=== PATIENT | female | born 2000 | race Two or more races ===

== ENCOUNTER 2020-02-01 22:43 | Inpatient (IN) | payer OTHER ==
[~2020-02-01] VITALS: Ht 152.4 cm; Wt 45.5 kg
[2020-02-02] MEDS ORDERED: LORazepam 2 MG/ML VIAL IM ONE ×2 (01:15→23:00)
[2020-02-02] MEDS ORDERED: HALOPERIDOL LACTATE 5 MG/ML VIAL IM ONE ×2 (01:15→23:00)
[2020-02-02 02:55] LABS: BASOPHILS % (AUTO) 0.3 % (0.0-2.0); EOSINOPHILS % (AUTO) 0 % (1.0-6.0); HEMOGLOBIN 12.9 g/dL (12.0-16.0); LYMPHOCYTES # (AUTO) 2.8 K/uL (1.0-4.8); LYMPHOCYTES % (AUTO) 24.9 % (22.0-44.0); MEAN CORPUSCULAR HGB CONC 33.9 G/dL (31.0-37.0); MEAN CORPUSCULAR VOLUME 83 fL (80-100); MONOCYTES # (AUTO) 0.7 K/uL (0.1-1.0); MONOCYTES % (AUTO) 6.3 % (2.0-9.0); NEUTROPHILS # (AUTO) 7.7 K/uL (1.8-7.7); NEUTROPHILS % (AUTO) 68.5 % (40.0-70.0); PLATELET COUNT (AUTO) 192 K/uL (150-450); RED CELL DISTRIBUTION WIDTH 13.1 % (11.5-14.5)
[2020-02-02 03:01] LABS: ANION GAP 17 mmol/L (8-16); CALCIUM, TOTAL 9.1 mg/dL (8.8-10.5); CARBON DIOXIDE 22 mmol/L (22-29); CHLORIDE 101 mmol/L (98-107); GLOMERULAR FILTR. RATE CALC 58 mL/min (>60); GLUCOSE,RANDOM 86 mg/dL (70-110); POTASSIUM 3.6 mmol/L (3.5-5.1); SODIUM SERUM 140 mmol/L (136-145); UREA NITROGEN, BLOOD 12 mg/dL (7-18)
[2020-02-02 03:07] LABS: ALANINE AMINOTRANSFERASE 36 U/L (12-78); ALBUMIN 4.8 g/dL (3.4-5.0); ALKALINE PHOSPHATASE 57 U/L (46-116); ASPARTATE AMINOTRANSFERASE 28 U/L (15-37); BILIRUBIN,TOTAL 1.3 mg/dL (0.1-1.0); TOTAL PROTEIN, SERUM 7.5 g/dL (6.4-8.2)
[2020-02-02 03:21] LABS: COVID AG,FIA SOURCE NASOPHARYNGEAL
[2020-02-02] MEDS ORDERED: ZOLPIDEM TARTRATE 10 MG TABLET PO PRN (04:15)
[2020-02-02 14:01] VITALS: BP 121/71
[2020-02-02 16:05] VITALS: BP 118/61
[2020-02-02] MEDS ORDERED: DiphenhydrAMINE HCL 50 MG/ML VIAL IM ONE (23:00)
[2020-02-03] MEDS ORDERED: DOCUSATE SODIUM 100 MG CAPSULE PO PRN (08:00)
[2020-02-03] MEDS ORDERED: MAG HYDROX/AL HYDROX/SIMETH ES 30 ML SUSPENSION UDCUP PO PRN (08:00)
[2020-02-03] MEDS ORDERED: PETROLATUM,WHITE 28 GM JELLY TP PRN (08:00)
[2020-02-03] MEDS ORDERED: OMEPRAZOLE 20 MG CAPSULE PO PRN (08:00)
[2020-02-03] MEDS ORDERED: CloNIDine HCL 0.1 MG TABLET PO PRN (08:00)
[2020-02-03] MEDS ORDERED: ONDANSETRON HCL 4 MG TABLET PO PRN (08:00)
[2020-02-03] MEDS ORDERED: ACETAMINOPHEN 325 MG TABLET PO PRN (08:00)
[2020-02-03] MEDS ORDERED: MAGNESIUM HYDROXIDE SUSPENSION 30 ML UDCUP PO PRN (08:00)
[2020-02-03] MEDS ORDERED: BACITRACIN 28 GM OINTMENT TP PRN (08:00)
[2020-02-03] MEDS ORDERED: ALBUTEROL SULFATE HFA 90 MCG/PUFF 8 GM INHALER IH PRN (08:00)
[2020-02-03] MEDS ORDERED: IBUPROFEN 600 MG TABLET PO PRN (08:00)
[2020-02-03] MEDS ORDERED: BENZOCAINE/MENTHOL LOZENGE PO PRN (08:00)
[2020-02-03] MEDS ORDERED: LOPERAMIDE HCL 2 MG CAPSULE PO PRN (08:00)
[2020-02-03] MEDS ORDERED: DiphenhydrAMINE HCL 50 MG/ML VIAL IM ONE (08:30)
[2020-02-03] MEDS ORDERED: LORazepam 2 MG/ML VIAL IM ONE (08:30)
[2020-02-03] MEDS ORDERED: HALOPERIDOL LACTATE 5 MG/ML VIAL IM ONE (08:30)
[2020-02-03 17:33] VITALS: BP 120/70
[2020-02-03] MEDS: OLANZapine 7.5 MG TABLET PO SCH (21:00)
[2020-02-04] MEDS ORDERED: LORazepam 2 MG/ML VIAL ONE (03:48)
[2020-02-04] MEDS ORDERED: DiphenhydrAMINE HCL 50 MG/ML VIAL ONE (03:49)
[2020-02-04] MEDS ORDERED: HALOPERIDOL LACTATE 5 MG/ML VIAL ONE (03:49)
[2020-02-04] MEDS ORDERED: HALOPERIDOL LACTATE 5 MG/ML VIAL IM ONE ×3 (04:00→16:00)
[2020-02-04] MEDS ORDERED: LORazepam 2 MG/ML VIAL IM ONE ×3 (04:00→16:00)
[2020-02-04] MEDS ORDERED: DiphenhydrAMINE HCL 50 MG/ML VIAL IM ONE ×2 (04:00→08:30)
[2020-02-04 08:15] LABS: CHOL/HDL RATIO 3.4 (3.9-5.7)
[2020-02-04 16:11] VITALS: BP 97/69
[2020-02-04] MEDS: OLANZapine 7.5 MG TABLET PO SCH (19:32)
[2020-02-05] MEDS ORDERED: ChlorproMAZINE HCL 50 MG/2 ML AMP IM ONE (07:45)
[2020-02-05] MEDS ORDERED: DiphenhydrAMINE HCL 50 MG/ML VIAL IM ONE (07:45)
[2020-02-05] MEDS ORDERED: LORazepam 2 MG/ML VIAL IM ONE (07:45)
[2020-02-05] MEDS ORDERED: DiphenhydrAMINE HCL 50 MG/ML VIAL ONE (07:48)
[2020-02-05] MEDS ORDERED: LORazepam 2 MG/ML VIAL ONE (07:48)
[2020-02-05] MEDS ORDERED: ChlorproMAZINE HCL 50 MG/2 ML AMP ONE (07:48)
[2020-02-05 08:34] VITALS: BP 134/96
[2020-02-05 08:42] LABS: AMPHET/METH SCREEN,URINE NEGATIVE (NEGATIVE); BARBITURATE SCREEN, URINE NEGATIVE (NEGATIVE); BENZODIAZEPINES SCREEN,URINE NEGATIVE (NEGATIVE); CANNABINOID SCREEN,URINE POSITIVE (NEGATIVE); COCAINE SCREEN,URINE NEGATIVE (NEGATIVE); METHADONE SCREEN, URINE NEGATIVE (NEGATIVE); OPIATE SCREEN,URINE NEGATIVE (NEGATIVE)
[2020-02-05 08:56] LABS: APPEARANCE,URINE TURBID (CLEAR); GLUCOSE, URINE (UA) NEGATIVE (NEGATIVE); KETONES,URINE 15 mg/dL (NEGATIVE); LEUKOCYTE ESTERASE ,URINE NEGATIVE (NEGATIVE); NITRATE,URINE NEGATIVE (NEGATIVE); OCCULT BLOOD,URINE NEGATIVE (NEGATIVE); PROTEIN,URINE POS 1+ (NEGATIVE)
[2020-02-05 08:57] LABS: BILIRUBIN,URINE PRELIM. POSITIVE (NEGATIVE)
[2020-02-05 09:06] LABS: AMORPHOUS SEDIMENT,UR Many /LPF (None Seen); BACTERIA,URINE None Seen /HPF (None Seen); RBC,URINE None Seen /HPF (0-2); SQUAMOUS EPITHELIAL CELL,UR Rare /LPF (None Seen); WBC,URINE None Seen /HPF (0-5)
[2020-02-05 09:18] LABS: PHENCYCLIDINE SCREEN,URINE NEGATIVE (NEGATIVE)
[2020-02-05 11:40] VITALS: BP 104/71
[2020-02-05 16:24] VITALS: BP 106/72
[2020-02-05] MEDS: LORazepam 2 MG TABLET PO PRN ×2 (16:25→20:36)
[2020-02-05] MEDS: HALOPERIDOL 5 MG TABLET PO PRN ×2 (16:25→20:36)
[2020-02-05] MEDS: OLANZapine 7.5 MG TABLET PO SCH (20:24)
[2020-02-06 02:48] VITALS: BP 124/74
[2020-02-06] MEDS: LORazepam 2 MG TABLET PO PRN ×2 (06:45→16:57)
[2020-02-06] MEDS: LITHIUM CARBONATE 300 MG CAPSULE PO SCH ×2 (09:00→16:57)
[2020-02-06] MEDS ORDERED: HALOPERIDOL LACTATE 5 MG/ML VIAL ONE (13:50)
[2020-02-06] MEDS ORDERED: LORazepam 2 MG/ML VIAL ONE (13:50)
[2020-02-06] MEDS ORDERED: LORazepam 2 MG/ML VIAL IM ONE (14:15)
[2020-02-06] MEDS ORDERED: HALOPERIDOL LACTATE 5 MG/ML VIAL IM ONE (14:15)
[2020-02-06] MEDS: HALOPERIDOL 10 MG TABLET PO SCH (20:24)
[2020-02-06] MEDS ORDERED: OLANZapine 10 MG TABLET PO SCH (21:00)
[2020-02-07] MEDS ORDERED: HALOPERIDOL LACTATE 5 MG/ML VIAL IM ONE ×2 (05:30→13:30)
[2020-02-07] MEDS ORDERED: LORazepam 2 MG/ML VIAL IM ONE ×2 (05:30→13:30)
[2020-02-07] MEDS: LITHIUM CARBONATE 300 MG CAPSULE PO SCH ×2 (08:51→20:51)
[2020-02-07] MEDS: LORazepam 2 MG TABLET PO PRN (11:45)
[2020-02-07] MEDS: HALOPERIDOL 5 MG TABLET PO PRN (11:45)
[2020-02-07 14:45] VITALS: BP 113/75
[2020-02-07] MEDS: HALOPERIDOL 10 MG TABLET PO SCH (20:51)
[2020-02-07] MEDS ORDERED: OLANZapine 10 MG TABLET PO SCH (21:00)
[2020-02-08] MEDS: LITHIUM CARBONATE 300 MG CAPSULE PO SCH (09:22)
[2020-02-08] MEDS ORDERED: HALOPERIDOL LACTATE 5 MG/ML VIAL IM ONE (11:15)
[2020-02-08] MEDS ORDERED: DiphenhydrAMINE HCL 50 MG/ML VIAL IM ONE (11:15)
[2020-02-08] MEDS ORDERED: LORazepam 2 MG/ML VIAL IM ONE (11:15)
[2020-02-08] MEDS ORDERED: LITH300C3 PO (16:43)
[2020-02-08] MEDS ORDERED: HALO10 PO (16:43)
[2020-02-08] MEDS ORDERED: OLAN10TA3 PO (16:44)
== END 2020-02-08 17:00 | disposition short-term general hospital (02) | DRG 885 ==
LOC: EMS 22:43 → B3A 02-02 08:05
PROVIDERS: ADMIT Psychiatry & Neurology Psychiatry; ATTEND Psychiatry & Neurology Psychiatry
DX: F31.9 Bipolar disorder, unspecified (principal); Z20.828 Contact with and (suspected) exposure to other viral communicable diseases; K59.00 Constipation, unspecified; F41.9 Anxiety disorder, unspecified; G47.00 Insomnia, unspecified
CPT/HCPCS: 80307; 87426; G0480; J1200; J1630; J2060; J3230

== ENCOUNTER 2021-09-25 16:52 | Inpatient (IN) | payer MEDICAID, OTHER ==
[~2021-09-25] VITALS: Ht 160 cm; Wt 62.5 kg
[~2021-09-25 16:52] MED LIST: HALO10TA21 PO; LITH300C3 PO; OLAN10TA74 PO
[2021-09-25] MEDS ORDERED: TRAZ-257 PO (17:24)
[2021-09-25 17:44] LABS: BASOPHILS % (AUTO) 0.6 % (0.0-2.0); EOSINOPHILS % (AUTO) 0.2 % (1.0-6.0); HEMATOCRIT 40.3 % (36-46); HEMOGLOBIN 13.3 g/dL (12.0-16.0); LYMPHOCYTES # (AUTO) 2.5 K/uL (1.0-4.8); LYMPHOCYTES % (AUTO) 27.7 % (22.0-44.0); MEAN CORPUSCULAR HEMOGLOBIN 26.2 pg (26.0-34.0); MEAN CORPUSCULAR HGB CONC 32.9 G/dL (31.0-37.0); MEAN CORPUSCULAR VOLUME 79 fL (80-100); MONOCYTES # (AUTO) 0.6 K/uL (0.1-1.0); MONOCYTES % (AUTO) 6.5 % (2.0-9.0); NEUTROPHILS # (AUTO) 5.9 K/uL (1.8-7.7); PLATELET COUNT (AUTO) 279 K/uL (150-450); RED BLOOD CELL COUNT(AUTO) 5.08 MIL/uL (4.00-5.20); RED CELL DISTRIBUTION WIDTH 13.8 % (11.5-14.5)
[2021-09-25 17:53] LABS: CARBON DIOXIDE 26 mmol/L (22-29); CHLORIDE 103 mmol/L (98-107); POTASSIUM 4.1 mmol/L (3.5-5.1); SODIUM SERUM 139 mmol/L (136-145)
[2021-09-25 17:54] LABS: ANION GAP 10 mmol/L (8-16); CALCIUM, TOTAL 9.3 mg/dL (8.8-10.5); CREATININE 0.75 mg/dL (0.60-1.30); GLOMERULAR FILTR. RATE CALC > 60 mL/min (>60); GLUCOSE,RANDOM 101 mg/dL (70-110); UREA NITROGEN, BLOOD 11 mg/dL (7-18)
[2021-09-25] MEDS ORDERED: LORazepam 2 MG/ML VIAL ONE (17:56)
[2021-09-25] MEDS ORDERED: HALOPERIDOL LACTATE 5 MG/ML VIAL ONE (17:56)
[2021-09-25] MEDS ORDERED: DiphenhydrAMINE HCL 50 MG/ML VIAL ONE (17:56)
[2021-09-25 17:59] LABS: ALANINE AMINOTRANSFERASE 16 U/L (12-78); ALBUMIN 4.3 g/dL (3.4-5.0); ALKALINE PHOSPHATASE 67 U/L (46-116); ASPARTATE AMINOTRANSFERASE 12 U/L (15-37); BILIRUBIN,TOTAL 0.6 mg/dL (0.1-1.0); TOTAL PROTEIN, SERUM 8.6 g/dL (6.4-8.2)
[2021-09-25] MEDS ORDERED: DiphenhydrAMINE HCL 50 MG/ML VIAL IM ONE (18:00)
[2021-09-25] MEDS ORDERED: LORazepam 2 MG/ML VIAL IM ONE (18:00)
[2021-09-25] MEDS ORDERED: HALOPERIDOL LACTATE 5 MG/ML VIAL IM ONE (18:00)
[2021-09-25 18:25] LABS: COVID AG,FIA SOURCE NASOPHARYNGEAL
[2021-09-25 18:40] LABS: SALICYLATE < 2.8 mg/dL (2.8-20.0)
[2021-09-25 18:44] LABS: ACETAMINOPHEN < 2 mcg/mL (10-30)
[2021-09-25 18:47] LABS: LITHIUM < 0.20 mmol/L (0.60-1.20)
[2021-09-25 18:50] LABS: AMPHET/METH SCREEN,URINE NEGATIVE (NEGATIVE); BARBITURATE SCREEN, URINE NEGATIVE (NEGATIVE); BENZODIAZEPINES SCREEN,URINE NEGATIVE (NEGATIVE); CANNABINOID SCREEN,URINE POSITIVE (NEGATIVE); COCAINE SCREEN,URINE NEGATIVE (NEGATIVE); METHADONE SCREEN, URINE NEGATIVE (NEGATIVE); OPIATE SCREEN,URINE NEGATIVE (NEGATIVE)
[2021-09-25 18:52] LABS: PHENCYCLIDINE SCREEN,URINE NEGATIVE (NEGATIVE)
[2021-09-26 02:42] VITALS: BP 119/82
[2021-09-26 08:14] VITALS: BP 115/77
[2021-09-26] MEDS: LORazepam 2 MG TABLET PO PRN ×3 (08:33→20:35)
[2021-09-26] MEDS: HALOPERIDOL 5 MG TABLET PO PRN ×3 (08:33→20:35)
[2021-09-26] MEDS ORDERED: BENZOCAINE/MENTHOL LOZENGE PO PRN (10:45)
[2021-09-26] MEDS ORDERED: CloNIDine HCL 0.1 MG TABLET PO PRN (10:45)
[2021-09-26] MEDS ORDERED: DOCUSATE SODIUM 100 MG CAPSULE PO PRN (10:45)
[2021-09-26] MEDS ORDERED: ALBUTEROL SULFATE HFA 90 MCG/PUFF 8 GM INHALER IH PRN (10:45)
[2021-09-26] MEDS ORDERED: ONDANSETRON HCL 4 MG TABLET PO PRN (10:45)
[2021-09-26] MEDS ORDERED: BACITRACIN 28 GM OINTMENT TP PRN (10:45)
[2021-09-26] MEDS ORDERED: MAGNESIUM HYDROXIDE SUSPENSION 30 ML UDCUP PO PRN (10:45)
[2021-09-26] MEDS ORDERED: IBUPROFEN 600 MG TABLET PO PRN (10:45)
[2021-09-26] MEDS ORDERED: LOPERAMIDE HCL 2 MG CAPSULE PO PRN (10:45)
[2021-09-26] MEDS ORDERED: OMEPRAZOLE 20 MG CAPSULE PO PRN (10:45)
[2021-09-26] MEDS ORDERED: ACETAMINOPHEN 325 MG TABLET PO PRN (10:45)
[2021-09-26] MEDS ORDERED: PETROLATUM,WHITE 28 GM JELLY TP PRN (10:45)
[2021-09-26] MEDS ORDERED: MAG HYDROX/AL HYDROX/SIMETH ES 30 ML SUSPENSION UDCUP PO PRN (10:45)
[2021-09-26 16:15] VITALS: BP 117/79
[2021-09-26] MEDS: LITHIUM CARBONATE 300 MG CAPSULE PO SCH (17:19)
[2021-09-26] MEDS: OLANZapine 7.5 MG TABLET PO SCH (20:18)
[2021-09-26] MEDS: DIVALPROEX SODIUM 500 MG DR TABLET PO SCH (20:18)
[2021-09-26 20:30] VITALS: BP 110/71
[2021-09-27] MEDS: LORazepam 2 MG TABLET PO PRN ×3 (04:44→17:15)
[2021-09-27] MEDS: HALOPERIDOL 5 MG TABLET PO PRN ×3 (04:44→17:15)
[2021-09-27] MEDS: DIVALPROEX SODIUM 500 MG DR TABLET PO SCH ×2 (07:37→20:24)
[2021-09-27] MEDS: LITHIUM CARBONATE 300 MG CAPSULE PO SCH ×2 (07:37→16:28)
[2021-09-27 08:09] VITALS: BP 112/46
[2021-09-27 17:35] VITALS: BP 106/57
[2021-09-27] MEDS: OLANZapine 7.5 MG TABLET PO SCH (20:24)
[2021-09-28] MEDS: LORazepam 2 MG TABLET PO PRN (05:57)
[2021-09-28] MEDS: HALOPERIDOL 5 MG TABLET PO PRN ×2 (05:57→15:40)
[2021-09-28] MEDS: DIVALPROEX SODIUM 500 MG DR TABLET PO SCH ×2 (07:35→20:22)
[2021-09-28] MEDS: LITHIUM CARBONATE 300 MG CAPSULE PO SCH ×2 (07:35→16:42)
[2021-09-28 09:30] VITALS: BP 142/91
[2021-09-28] MEDS ORDERED: DiphenhydrAMINE HCL 50 MG/ML VIAL IM ONE ×2 (10:15→10:45)
[2021-09-28] MEDS ORDERED: LORazepam 2 MG/ML VIAL IM ONE ×2 (10:15→10:45)
[2021-09-28] MEDS ORDERED: HALOPERIDOL LACTATE 5 MG/ML VIAL IM ONE ×2 (10:15→10:45)
[2021-09-28 16:01] VITALS: BP 110/66
[2021-09-28] MEDS ORDERED: OLANZapine 10 MG TABLET PO SCH (21:00)
[2021-09-29] MEDS: LORazepam 2 MG TABLET PO PRN (02:34)
[2021-09-29] MEDS: ZOLPIDEM TARTRATE 10 MG TABLET PO PRN (02:34)
[2021-09-29] MEDS ORDERED: DiphenhydrAMINE HCL 50 MG/ML VIAL IM ONE (08:15)
[2021-09-29] MEDS ORDERED: ChlorproMAZINE HCL 50 MG/2 ML AMP IM ONE (08:15)
[2021-09-29] MEDS ORDERED: LORazepam 2 MG/ML VIAL IM ONE (08:15)
[2021-09-29] MEDS: LITHIUM CARBONATE 300 MG CAPSULE PO SCH ×2 (08:27→16:35)
[2021-09-29] MEDS: DIVALPROEX SODIUM 500 MG DR TABLET PO SCH ×2 (08:27→20:20)
[2021-09-29] MEDS: OLANZapine 10 MG TABLET PO SCH (20:36)
[2021-09-30] MEDS: LITHIUM CARBONATE 300 MG CAPSULE PO SCH ×2 (07:38→16:28)
[2021-09-30] MEDS: DIVALPROEX SODIUM 500 MG DR TABLET PO SCH ×2 (07:38→20:07)
[2021-09-30] MEDS: LORazepam 2 MG TABLET PO PRN ×3 (07:38→18:45)
[2021-09-30] MEDS: HALOPERIDOL 5 MG TABLET PO PRN ×2 (14:12→18:45)
[2021-09-30] MEDS: OLANZapine 10 MG TABLET PO SCH (20:07)
[2021-10-01] MEDS: DIVALPROEX SODIUM 500 MG DR TABLET PO SCH ×2 (07:52→20:24)
[2021-10-01] MEDS: HALOPERIDOL 5 MG TABLET PO PRN ×2 (07:52→16:36)
[2021-10-01] MEDS: LITHIUM CARBONATE 300 MG CAPSULE PO SCH ×2 (07:52→16:36)
[2021-10-01] MEDS: LORazepam 2 MG TABLET PO PRN ×2 (07:52→16:36)
[2021-10-01 08:28] VITALS: BP 141/87
[2021-10-01] MEDS: OLANZapine 10 MG TABLET PO SCH (20:24)
[2021-10-02 08:12] VITALS: BP 121/85
[2021-10-02] MEDS: DIVALPROEX SODIUM 500 MG DR TABLET PO SCH ×2 (08:20→20:23)
[2021-10-02] MEDS: LITHIUM CARBONATE 300 MG CAPSULE PO SCH ×2 (08:20→16:00)
[2021-10-02] MEDS: HALOPERIDOL 5 MG TABLET PO PRN (15:05)
[2021-10-02] MEDS: LORazepam 2 MG TABLET PO PRN (15:05)
[2021-10-02] MEDS ORDERED: HALOPERIDOL LACTATE 5 MG/ML VIAL IM ONE (16:15)
[2021-10-02] MEDS ORDERED: DiphenhydrAMINE HCL 50 MG/ML VIAL IM ONE (16:15)
[2021-10-02] MEDS ORDERED: LORazepam 2 MG/ML VIAL IM ONE (16:15)
[2021-10-02] MEDS: OLANZapine 10 MG TABLET PO SCH (20:23)
[2021-10-03] MEDS: LITHIUM CARBONATE 300 MG CAPSULE PO SCH ×2 (08:26→16:46)
[2021-10-03] MEDS: DIVALPROEX SODIUM 500 MG DR TABLET PO SCH ×2 (08:26→20:54)
[2021-10-03] MEDS: LORazepam 2 MG TABLET PO PRN (15:45)
[2021-10-03 16:30] VITALS: BP 120/79
[2021-10-03] MEDS: HALOPERIDOL 5 MG TABLET PO PRN (16:46)
[2021-10-03] MEDS: OLANZapine 10 MG TABLET PO SCH (20:54)
[2021-10-04 08:13] VITALS: BP 125/83
[2021-10-04] MEDS: DIVALPROEX SODIUM 500 MG DR TABLET PO SCH ×2 (08:28→20:00)
[2021-10-04] MEDS: LITHIUM CARBONATE 300 MG CAPSULE PO SCH ×2 (08:28→16:29)
[2021-10-04] MEDS: HALOPERIDOL 5 MG TABLET PO PRN (15:45)
[2021-10-04 16:42] VITALS: BP 136/91
[2021-10-04] MEDS: OLANZapine 10 MG TABLET PO SCH (20:00)
[2021-10-04] MEDS: ZOLPIDEM TARTRATE 10 MG TABLET PO PRN (20:28)
[2021-10-05 05:47] LABS: COVID AG,FIA SOURCE NASAL SWAB
[2021-10-05] MEDS: LITHIUM CARBONATE 300 MG CAPSULE PO SCH ×2 (09:07→16:45)
[2021-10-05] MEDS: DIVALPROEX SODIUM 500 MG DR TABLET PO SCH ×2 (09:07→20:30)
[2021-10-05] MEDS ORDERED: LORazepam 2 MG/ML VIAL ONE (16:19)
[2021-10-05] MEDS ORDERED: HALOPERIDOL LACTATE 5 MG/ML VIAL ONE (16:19)
[2021-10-05] MEDS ORDERED: DiphenhydrAMINE HCL 50 MG/ML VIAL ONE (16:19)
[2021-10-05] MEDS ORDERED: LORazepam 2 MG/ML VIAL IM ONE (16:30)
[2021-10-05] MEDS ORDERED: DiphenhydrAMINE HCL 50 MG/ML VIAL IM ONE (16:30)
[2021-10-05] MEDS ORDERED: HALOPERIDOL LACTATE 5 MG/ML VIAL IM ONE (16:30)
[2021-10-05 17:31] VITALS: BP 132/85
[2021-10-05] MEDS: OLANZapine 10 MG TABLET PO SCH (20:30)
[2021-10-05] MEDS: ZOLPIDEM TARTRATE 10 MG TABLET PO PRN (20:48)
[2021-10-06 08:12] VITALS: BP 120/80
[2021-10-06] MEDS: DIVALPROEX SODIUM 500 MG DR TABLET PO SCH ×3 (09:00→16:32)
[2021-10-06] MEDS: LITHIUM CARBONATE 300 MG CAPSULE PO SCH ×2 (09:00→16:32)
[2021-10-06 16:23] VITALS: BP 113/72
[2021-10-06] MEDS: HALOPERIDOL 5 MG TABLET PO PRN (16:33)
[2021-10-06] MEDS ORDERED: LORazepam 2 MG TABLET PO PRN (17:30)
[2021-10-06] MEDS ORDERED: ZOLPIDEM TARTRATE 10 MG TABLET PO PRN (17:30)
[2021-10-06] MEDS: OLANZapine 10 MG TABLET PO SCH (20:05)
[2021-10-07] MEDS: LITHIUM CARBONATE 300 MG CAPSULE PO SCH (08:13)
[2021-10-07] MEDS: DIVALPROEX SODIUM 500 MG DR TABLET PO SCH ×2 (08:13→13:18)
[2021-10-07 08:32] VITALS: BP 115/71
[2021-10-07] MEDS ORDERED: DIVA-112 PO (20:47)
[2021-10-08] MEDS ORDERED: DIVA-112 PO (00:29)
[2021-10-08] MEDS ORDERED: LITH300C3 PO (00:29)
== END 2021-10-07 14:15 | disposition home or self-care (01) | DRG 750 ==
LOC: EMS 16:52 → 3EC 09-26 01:29
PROVIDERS: ADMIT Psychiatry & Neurology Psychiatry; ATTEND Psychiatry & Neurology Psychiatry
DX: F25.9 Schizoaffective disorder, unspecified (principal); Z91.14 Patient's other noncompliance with medication regimen; R45.851 Suicidal ideations; F10.11 Alcohol abuse, in remission; F12.10 Cannabis abuse, uncomplicated; F31.9 Bipolar disorder, unspecified; T43.212A Poisoning by selective serotonin and norepinephrine reuptake inhibitors, intentional self-harm, initial encounter; Y90.9 Presence of alcohol in blood, level not specified; Z20.822 Contact with and (suspected) exposure to COVID-19; G47.00 Insomnia, unspecified; K59.00 Constipation, unspecified; F41.9 Anxiety disorder, unspecified; Z71.51 Drug abuse counseling and surveillance of drug abuser; Z87.891 Personal history of nicotine dependence; Y92.89 Other specified places as the place of occurrence of the external cause
CPT/HCPCS: 80053; 80164; 80178; 85025; 96365; 99291; G0480; G0481; J1200; J1630; J2060; J3230

== ENCOUNTER 2023-04-08 07:15 | Inpatient (IN) | payer MEDICAID ==
[~2023-04-08] VITALS: Ht 149.9 cm; Wt 72.1 kg
[~2023-04-08 07:15] MED LIST changes: +DIVA-112 PO; +TRAZ-257 PO
[2023-04-09] MEDS ORDERED: HALOPERIDOL 5 MG TABLET PO PRN (13:00)
[2023-04-09] MEDS ORDERED: ZOLPIDEM TARTRATE 10 MG TABLET PO PRN (13:00)
[2023-04-09] MEDS ORDERED: INFLUENZA VIRUS VACCINE QVS 2023-24 (6MO+)/PF 60 MCG/0.5 ML SYRINGE IM. ONE (14:45)
[2023-04-09 15:40] VITALS: BP 136/74; PULSE 97; RESP 19; TEMP 97.9; O2SAT 99
[2023-04-09] MEDS ORDERED: HALOPERIDOL LACTATE 5 MG/ML VIAL IM PRN (17:30)
[2023-04-09] MEDS ORDERED: MAG HYDROX/ALUMINUM HYD/SIMETH ES 30 ML SUSPENSION UDCUP PO PRN (17:30)
[2023-04-09] MEDS ORDERED: GuaiFENesin/D-METHORPHAN [SUGAR-FREE] 200-20MG/10 ML SYRUP UDCUP PO PRN (17:30)
[2023-04-09] MEDS ORDERED: HydrOXYzine PAMOATE 50 MG CAPSULE PO PRN (17:30)
[2023-04-09] MEDS ORDERED: PROMETHAZINE HCL 25 MG TABLET PO PRN (17:30)
[2023-04-09] MEDS ORDERED: LOPERAMIDE HCL 2 MG CAPSULE PO PRN (17:30)
[2023-04-09] MEDS ORDERED: MAGNESIUM HYDROXIDE SUSPENSION 30 ML UDCUP PO PRN (17:30)
[2023-04-09] MEDS ORDERED: TUBERCULIN, PURIFIED PROTEIN DERIVATIVE 5 TU/0.1 ML SYRINGE ID ONE (17:30)
[2023-04-09] MEDS ORDERED: ACETAMINOPHEN 325 MG TABLET PO PRN (17:30)
[2023-04-09] MEDS ORDERED: DiphenhydrAMINE HCL 50 MG/ML VIAL ONE (17:52)
[2023-04-09] MEDS ORDERED: HALOPERIDOL LACTATE 5 MG/ML VIAL IM ONE (18:00)
[2023-04-09] MEDS ORDERED: LORazepam 2 MG/ML VIAL IM ONE (18:00)
[2023-04-09] MEDS ORDERED: DiphenhydrAMINE HCL 50 MG/ML VIAL IM ONE (18:00)
[2023-04-09] MEDS: MELATONIN 5 MG TABLET PO SCH (20:25)
[2023-04-09] MEDS: OLANZapine 5 MG RAPDIS TABLET PO SCH (20:25)
[2023-04-09] MEDS ORDERED: OXcarbazepine 300 MG TABLET PO SCH (21:00)
[2023-04-09] MEDS ORDERED: OLANZapine 5 MG RAPDIS TABLET PO SCH (21:00)
[2023-04-10] MEDS: MULTIVITAMINS WITH MINERALS, THERAPEUTIC TABLET PO SCH (08:18)
[2023-04-10] MEDS: FOLIC ACID 1 MG TABLET PO SCH (08:18)
[2023-04-10] MEDS: DIVALPROEX SODIUM 500 MG ER TABLET PO SCH ×3 (08:18→16:13)
[2023-04-10] MEDS: NALTREXONE HCL 50 MG TABLET PO SCH (08:18)
[2023-04-10] MEDS: OMEGA-3/DHA/EPA/FISH OIL 1,000 MG CAPSULE PO SCH (08:18)
[2023-04-10] MEDS: THIAMINE 100 MG TABLET PO SCH ×2 (08:19→16:13)
[2023-04-10] MEDS: LORazepam 2 MG TABLET PO PRN ×2 (08:19→14:29)
[2023-04-10 08:35] VITALS: BP 132/73; PULSE 100; RESP 16; TEMP 97.8; O2SAT 97
[2023-04-10] MEDS: OLANZapine 5 MG RAPDIS TABLET PO SCH ×4 (08:42→20:44)
[2023-04-10] MEDS: OLANZapine 5 MG RAPDIS TABLET PO PRN (14:29)
[2023-04-10] MEDS: MELATONIN 5 MG TABLET PO SCH (20:44)
[2023-04-10 20:56] VITALS: BP 112/68; PULSE 85; RESP 18; TEMP 97.3
[2023-04-11] MEDS: OLANZapine 5 MG RAPDIS TABLET PO PRN ×2 (03:38→10:24)
[2023-04-11] MEDS: THIAMINE 100 MG TABLET PO SCH ×2 (08:12→16:29)
[2023-04-11] MEDS: MULTIVITAMINS WITH MINERALS, THERAPEUTIC TABLET PO SCH (08:13)
[2023-04-11] MEDS: FOLIC ACID 1 MG TABLET PO SCH (08:13)
[2023-04-11] MEDS: OLANZapine 5 MG RAPDIS TABLET PO SCH ×4 (08:13→20:55)
[2023-04-11] MEDS: LORazepam 2 MG TABLET PO PRN (08:13)
[2023-04-11] MEDS: OMEGA-3/DHA/EPA/FISH OIL 1,000 MG CAPSULE PO SCH (08:13)
[2023-04-11] MEDS: NALTREXONE HCL 50 MG TABLET PO SCH (08:13)
[2023-04-11] MEDS: DIVALPROEX SODIUM 500 MG ER TABLET PO SCH ×3 (08:13→16:29)
[2023-04-11 08:17] LABS: BASOPHILS % (AUTO) 0.5 % (0.0-2.0); EOSINOPHILS % (AUTO) 2.2 % (1.0-6.0); HEMATOCRIT 36.8 % (36-46); HEMOGLOBIN 12.3 g/dL (12.0-16.0); LYMPHOCYTES # (AUTO) 3.1 K/uL (1.0-4.8); LYMPHOCYTES % (AUTO) 42.5 % (22.0-44.0); MEAN CORPUSCULAR HEMOGLOBIN 28.5 pg (26.0-34.0); MEAN CORPUSCULAR HGB CONC 33.5 G/dL (31.0-37.0); MEAN CORPUSCULAR VOLUME 85 fL (80-100); MONOCYTES # (AUTO) 0.5 K/uL (0.1-1.0); MONOCYTES % (AUTO) 6.9 % (2.0-9.0); NEUTROPHILS # (AUTO) 3.5 K/uL (1.8-7.7); NEUTROPHILS % (AUTO) 47.9 % (40.0-70.0); PLATELET COUNT (AUTO) 184 K/uL (150-450); RED BLOOD CELL COUNT(AUTO) 4.32 MIL/uL (4.00-5.20); RED CELL DISTRIBUTION WIDTH 13.7 % (11.5-14.5); WHITE BLOOD COUNT (AUTO) 7.2 K/uL (4.5-11.0)
[2023-04-11 08:32] VITALS: BP 109/65; PULSE 92; RESP 17; TEMP 97.6; O2SAT 97
[2023-04-11 08:46] LABS: ALANINE AMINOTRANSFERASE 138 U/L (12-78); ALBUMIN 3.1 g/dL (3.4-5.0); ALKALINE PHOSPHATASE 62 U/L (46-116); ANION GAP 7 mmol/L (8-16); ASPARTATE AMINOTRANSFERASE 83 U/L (15-37); BILIRUBIN,TOTAL 0.2 mg/dL (0.1-1.0); CALCIUM, TOTAL 8.3 mg/dL (8.8-10.5); CARBON DIOXIDE 26 mmol/L (22-29); CHLORIDE 105 mmol/L (98-107); CREATININE 0.69 mg/dL (0.60-1.30); FREE T4 (FREE THYROXINE) 1.15 ng/dL (0.76-1.46); GLOMERULAR FILTR. RATE CALC > 60 mL/min (>60); GLUCOSE,RANDOM 117 mg/dL (70-110); SODIUM SERUM 138 mmol/L (136-145); THYROID STIMULATING HORMONE 0.34 uIU/mL (0.36-3.74); TOTAL PROTEIN, SERUM 6.7 g/dL (6.4-8.2); UREA NITROGEN, BLOOD 10 mg/dL (7-18)
[2023-04-11 09:09] VITALS: BP 109/65; PULSE 92; RESP 17; TEMP 97.6; O2SAT 97
[2023-04-11] MEDS: MELATONIN 5 MG TABLET PO SCH (20:54)
[2023-04-11 23:24] VITALS: BP 118/72; PULSE 85; RESP 18; TEMP 98; O2SAT 98
[2023-04-12] MEDS: MULTIVITAMINS WITH MINERALS, THERAPEUTIC TABLET PO SCH (08:03)
[2023-04-12] MEDS: FOLIC ACID 1 MG TABLET PO SCH (08:03)
[2023-04-12] MEDS: DIVALPROEX SODIUM 500 MG ER TABLET PO SCH ×3 (08:03→16:18)
[2023-04-12] MEDS: NALTREXONE HCL 50 MG TABLET PO SCH (08:03)
[2023-04-12] MEDS: THIAMINE 100 MG TABLET PO SCH ×2 (08:03→17:24)
[2023-04-12] MEDS: LORazepam 2 MG TABLET PO PRN ×2 (08:03→16:18)
[2023-04-12] MEDS: OMEGA-3/DHA/EPA/FISH OIL 1,000 MG CAPSULE PO SCH (08:04)
[2023-04-12] MEDS: OLANZapine 5 MG RAPDIS TABLET PO SCH ×4 (08:04→20:11)
[2023-04-12 08:43] VITALS: BP 111/73; PULSE 100; RESP 17; TEMP 97.6; O2SAT 96
[2023-04-12] MEDS ORDERED: LORazepam 2 MG/ML VIAL ONE (08:46)
[2023-04-12] MEDS ORDERED: DiphenhydrAMINE HCL 50 MG/ML VIAL ONE (08:46)
[2023-04-12] MEDS ORDERED: DiphenhydrAMINE HCL 50 MG/ML VIAL IM ONE (09:00)
[2023-04-12] MEDS ORDERED: LORazepam 2 MG/ML VIAL IM ONE (09:00)
[2023-04-12] MEDS ORDERED: HALOPERIDOL LACTATE 5 MG/ML VIAL IM ONE (09:00)
[2023-04-12 09:01] VITALS: BP 111/73; PULSE 106; RESP 17; TEMP 97.6; O2SAT 96
[2023-04-12 18:45] VITALS: BP 122/70; PULSE 98; RESP 20; TEMP 97.3; O2SAT 100
[2023-04-12] MEDS: MELATONIN 5 MG TABLET PO SCH (20:11)
[2023-04-12 23:58] VITALS: BP 124/74; PULSE 96; RESP 18; TEMP 97.5; O2SAT 97
[2023-04-13 02:21] VITALS: BP 122/72; PULSE 86; RESP 17; TEMP 97.5; O2SAT 97
[2023-04-13] MEDS: NALTREXONE HCL 50 MG TABLET PO SCH (08:32)
[2023-04-13] MEDS: MULTIVITAMINS WITH MINERALS, THERAPEUTIC TABLET PO SCH (08:32)
[2023-04-13] MEDS: FOLIC ACID 1 MG TABLET PO SCH (08:32)
[2023-04-13] MEDS: DIVALPROEX SODIUM 500 MG ER TABLET PO SCH ×3 (08:32→17:23)
[2023-04-13] MEDS: THIAMINE 100 MG TABLET PO SCH ×2 (08:32→17:23)
[2023-04-13] MEDS: OLANZapine 5 MG RAPDIS TABLET PO SCH ×4 (08:33→21:01)
[2023-04-13] MEDS: OMEGA-3/DHA/EPA/FISH OIL 1,000 MG CAPSULE PO SCH (08:33)
[2023-04-13 08:44] LABS: CHOL/HDL RATIO 2.7 (3.9-5.7)
[2023-04-13 08:58] VITALS: BP 113/69; PULSE 76; RESP 16; TEMP 98.3; O2SAT 96
[2023-04-13 09:00] VITALS: BP 105/67; PULSE 100; RESP 18; TEMP 98; O2SAT 98
[2023-04-13 20:20] VITALS: BP 126/73; PULSE 96; RESP 18; TEMP 97.5
[2023-04-13 20:37] VITALS: BP 126/73; PULSE 96; RESP 18; TEMP 97.5
[2023-04-13] MEDS: MELATONIN 5 MG TABLET PO SCH (21:01)
[2023-04-14] MEDS: OLANZapine 5 MG RAPDIS TABLET PO PRN (03:52)
[2023-04-14] MEDS: THIAMINE 100 MG TABLET PO SCH ×2 (08:11→16:09)
[2023-04-14] MEDS: NALTREXONE HCL 50 MG TABLET PO SCH (08:11)
[2023-04-14] MEDS: DIVALPROEX SODIUM 500 MG ER TABLET PO SCH ×3 (08:11→16:09)
[2023-04-14] MEDS: LORazepam 2 MG TABLET PO PRN ×2 (08:11→16:09)
[2023-04-14] MEDS: OLANZapine 5 MG RAPDIS TABLET PO SCH ×4 (08:11→20:10)
[2023-04-14] MEDS: OMEGA-3/DHA/EPA/FISH OIL 1,000 MG CAPSULE PO SCH (08:11)
[2023-04-14] MEDS: FOLIC ACID 1 MG TABLET PO SCH (08:11)
[2023-04-14] MEDS: MULTIVITAMINS WITH MINERALS, THERAPEUTIC TABLET PO SCH (08:11)
[2023-04-14 09:07] LABS: HEPATITIS C AB (EIA) Non Reactive (Non Reactive)
[2023-04-14 09:41] VITALS: BP 120/66; PULSE 98; RESP 18; TEMP 98.3
[2023-04-14] MEDS: MELATONIN 5 MG TABLET PO SCH (20:10)
[2023-04-14] MEDS ORDERED: DIVA500T69 PO (20:31)
[2023-04-14] MEDS ORDERED: MELA5TAB40 PO (20:31)
[2023-04-14] MEDS ORDERED: OLAN5TAB94 PO (20:31)
[2023-04-14] MEDS ORDERED: NALT50TA PO (20:31)
[2023-04-14] MEDS ORDERED: OMEG-135 PO (20:31)
[2023-04-15 01:21] VITALS: BP 111/77; PULSE 97; RESP 16; TEMP 96.3; O2SAT 98
[2023-04-15] MEDS: MULTIVITAMINS WITH MINERALS, THERAPEUTIC TABLET PO SCH (08:06)
[2023-04-15] MEDS: THIAMINE 100 MG TABLET PO SCH (08:06)
[2023-04-15] MEDS: OMEGA-3/DHA/EPA/FISH OIL 1,000 MG CAPSULE PO SCH (08:06)
[2023-04-15] MEDS: NALTREXONE HCL 50 MG TABLET PO SCH (08:06)
[2023-04-15] MEDS: FOLIC ACID 1 MG TABLET PO SCH (08:07)
[2023-04-15] MEDS: OLANZapine 5 MG RAPDIS TABLET PO SCH (08:07)
[2023-04-15] MEDS: DIVALPROEX SODIUM 500 MG ER TABLET PO SCH (08:07)
== END 2023-04-15 11:45 | disposition home or self-care (01) | DRG 753 ==
LOC: B3A 04-09 14:01
PROVIDERS: ADMIT Psychiatry & Neurology Psychiatry; ATTEND Psychiatry & Neurology Psychiatry
PROC: GZHZZZZ Group Psychotherapy (ICD-10-PCS; principal; 2023-04-09)
PROC: GZ51ZZZ Individual Psychotherapy, Behavioral (ICD-10-PCS; 2023-04-09)
DX: F31.2 Bipolar disorder, current episode manic severe with psychotic features (principal); F12.90 Cannabis use, unspecified, uncomplicated
CPT/HCPCS: 80053; 80061; 83036; 84439; 84443; 85025; 86592; 86803; 87081; 87340; J1200; J1630; J2060; Q9967